=== PATIENT | male | born 1970 | race Caucasian/White ===

== ENCOUNTER → 2017-05-06 | Day surgery (SDC) | payer OTHER ==
[~2017-05-06] MED LIST: CEFAZOLIN SOD 2 GM/D5W 50ML 50 ML IV ONE; DEXAMETHASONE SOD PHOS INJ 4 MG/ML VIAL ONE; FENTANYL CITRATE/PF 100MCG/2 ML INJ ONE; IOPAMIDOL 610MG/1ML 300 MG/ML VIAL IV ONE; LIDOCAINE HCL 2% LOCAL INJ 5 ML SDV VIAL INJ ONE; MIDAZOLAM HCL 2 MG/2 ML VIAL ONE; ONDANSETRON HCL INJ 2 MG/ML VIAL ONE; PROPOFOL IV EMULSION 10 MG/ML 20 ML VIAL ONE; SEVOFLURANE INHAL SOLN 250 ML PEN BTL ONE
--- NOTE | 2017-05-06 10:43 | Diagnostic Imaging Report ---
PROCEDURE:RETROGRADE PYELOGRAM INDICATION:Retrograde pyelogram with stent exchange COMPARISON:None. TECHNIQUE:36 fluoroscopic images are submitted for interpretation. Fluoroscopy time: 33 seconds. Air kerma: 12.73 mGy. FINDINGS: Indwelling left double-J ureteral stent. The stent was exchanged without complication. The left upper portion of the stent is not coiled, with the tip projecting to the upper pole calyx. There is a mid ureteral filling defect consistent with partial obstruction. Right-sided retrograde pyelogram is normal. CONCLUSION: 1. Left mid ureteral filling defect consistent with urolithiasis. 2. Left double-J ureteral stent exchange without conspicuous complication. The upper portion of the left stent is not coiled, but has the upper portion of the stent in the upper pole calyx. 3. Normal right retrograde pyelogram. Dictated by: Darrion Osei M.D. on 05/06/2017 at 10:51 Electronically approved by: Darrion Osei M.D. on 05/06/2017 at 10:51
--- NOTE | 2017-05-06 16:11 | Operative Report ---
DATE OF PROCEDURE: May 06, 2017 PREOPERATIVE DIAGNOSIS: 1. Left nephrolithiasis. 2. Left double J stent. 3. Left hydronephrosis. 4. Microhematuria. 5. Renal colic. POSTOPERATIVE DIAGNOSIS: 1. Left nephrolithiasis. 2. Left double J stent. 3. Left hydronephrosis. 4. Microhematuria. 5. Renal colic. OPERATION PERFORMED: 1. Cystoscopy and right retrograde pyelograms under fluoroscopic control. This is done as part of the evaluation of the microhematuria, not related to the contralateral side, done with different instruments. 2. Removal of double J stent from the left side. 3. Left retrograde pyelograms under fluoroscopic control. 4. Left ureteroscopy, diagnostic. 5. Interpretation of x-ray. Radiologist not present. 6. Supervision of fluoroscopy. Radiologist not present. DATA COMMUNICATIONS ANALYST: None. ANESTHESIA: General. CLINICAL INDICATION NOTE: This is a 46-year-old patient that has a double J stent for a small calculus. He was brought for assessment with ureteroscopy and, if needed, fragmentation of stone. Patient was advised about the procedure. Potential benefit and complication explained and accepted. DESCRIPTION OF PROCEDURE AND FINDINGS: After proper level of anesthesia was achieved, the patient was placed in lithotomy position, prepped and draped in sterile fashion. Urethra inspected, is unremarkable. Outlet is normal. Bladder mucosa is normal. No tumor identified in the bladder. Double J stent is protruding through the left ureteral orifice. Open-end catheter was inserted to the right side and retrograde pyelograms demonstrating a normal right collecting system, no hydronephrosis, no blockage and drainage prompt. Following this, the double J stent was removed from the left side. Open-end catheter was inserted and retrograde pyelograms demonstrating minimal dilation of the upper collecting system. Not clear whether any fragments of stone are seen. Guidewire was kept in place, and a flexible ureteroscopy was done. Each calyx was carefully examined, and the ureter was examined all its way down. No stones were identified. The bladder was then irrigated. The scope was removed, and patient was transferred in satisfactory condition to the recovery room. He will be followed as outpatient. Job#: [id number]
== END | disposition home or self-care (01) ==
LOC: OR 07:30
PROVIDERS: ATTEND Urology
DX: N20.0 Calculus of kidney (principal); Z46.6 Encounter for fitting and adjustment of urinary device; N13.30 Unspecified hydronephrosis
CPT/HCPCS: 52351; 74420; J1100; J2001; J2250; J2405; Q9967